=== PATIENT | male | born 1935 | race Caucasian/White ===

== ENCOUNTER 2019-01-24 08:41 | Inpatient (IN) | payer OTHER ==
[~2019-01-24] VITALS: Ht 175.3 cm; Wt 107.5 kg
[2019-01-24] MEDS ORDERED: DILTIAZEM 24HR120 MG (09:11)
[2019-01-24] MEDS ORDERED: XARELTO15 MG (09:11)
[2019-01-24] MEDS ORDERED: SINGULAIR 10MG10 MG (09:13)
[2019-01-24] MEDS ORDERED: LASIX20 MG (09:14)
[2019-01-24] MEDS ORDERED: ADVAIR HFA 230/12 GM (09:14)
[2019-01-24] MEDS ORDERED: RYTARY ER 36.21 EACH (09:15)
--- NOTE | 2019-01-24 09:45 | NUR ---
SE RECIBE PTE EN AMBULANCIA ACOMPANADO POR FAMILIAR POR DIFICULTAD RESPIRATORIA SUDOROSO CON WAGNER CATETER. EVALUADO POR EL SE ORIENTA PTE Y FAMILIAR SOBRE TRATAMIENTO MEDICO Y LA UNIDAD CONECTADO A MONITOR CARDIACO. SE LE EXTRAEN MUESTRAS DE JEANINE Y SE ENVIAN AL LABORATORIO. SE LE REALIZAN ABG Y TERAPIA RESPIRATORIA POR . SE LE OBSERVAN AMBAS EXTREMIDADES INFERIORES EDEMATOSAS. SE MANTIENE EN OBSERVACION.
--- NOTE | 2019-01-24 10:33 | NUR ---
POR ORDEN DEL SE LE BAJA EL RATE DE TRIDIL AT 3ML/HR. SE MANTIENE EN OBSERVACION.
--- NOTE | 2019-01-24 15:44 | NUR ---
SE RECIBE PACIENTE EN AREA DE CHEST PAIN BOBY # 18.SE OFRECE DORY PARA EVALUAR CONDICION.PACIENTE ALERTA,ACTIVO Y ORIENTADO,ACOMPANADO DE ESPOSA. CONECTADO A MONITOR CARDIACO CON SATUROMETRO Y CANULA NASAL A 3 LITROS.SE MIDEN Y DOCUMENTAN S/V.IVF'S PATENTES BAJANDO TRIDIL A 3MLS/HR A TRAVEZ DE VENA EN MANO IZQ.AREA SANIYA DE EDEMA Y/O ERITEMA.SILVIA ES EVALUADO POR DR TAVERA A LAS 3:30PM E INDICA SERA ADMITIDO.SE CONTINUA MONITOREANDO EN TURNO POR CAMBIOS SIGNIFICATIVOS.BARANDAS ELEVADAS POR KHANNA SEGURIDAD,NO REFIERE DUDAS AL MOMENTO.
[2019-01-30] MEDS ORDERED: AMIODARONE HCL200 MG PO (16:44)
[2019-01-30] MEDS ORDERED: TOPROL XL100 M1 PO (16:44)
[2019-01-30] MEDS ORDERED: SERTRALINE HCL50 MG PO (16:45)
[2019-01-30] MEDS ORDERED: LASIX20 MG PO (16:46)
[2019-02-01] MEDS ORDERED: SINEMET 25-1001 EACH PO (09:40)
[2019-02-01] MEDS ORDERED: FUROSEMIDE20 MG PO (09:40)
[2019-02-01] MEDS ORDERED: DILTIAZEM 24HR120 MG PO (09:40)
[2019-02-01] MEDS ORDERED: XARELTO15 MG PO (09:40)
[2019-02-01] MEDS ORDERED: ARICEPT10 MG PO (09:40)
[2019-02-01] MEDS ORDERED: XOPENEX HFA15 GM IH (09:47)
[2019-02-01] MEDS ORDERED: ADVAIR HFA 230/12 GM IH (10:04)
[2019-02-01] MEDS ORDERED: SINGULAIR 10MG10 MG PO (10:04)
== END 2019-02-01 13:12 | disposition home or self-care (01) | DRG 292 ==
LOC: ER 08:41 → ICU-2 16:07 → ICU 16:07 → MEDJ 01-29 18:38
PROVIDERS: ADMIT Internal Medicine
PROC: B246ZZZ Ultrasonography of Right and Left Heart (ICD-10-PCS; principal; 2019-01-24)
PROC: 3E0F7GC Introduction of Other Therapeutic Substance into Respiratory Tract, Via Natural or Artificial Opening (ICD-10-PCS; 2019-01-24)
PROC: 4A033R1 Measurement of Arterial Saturation, Peripheral, Percutaneous Approach (ICD-10-PCS; 2019-01-24)
PROC: 4A12X4Z Monitoring of Cardiac Electrical Activity, External Approach (ICD-10-PCS; 2019-01-30)
DX: I11.0 Hypertensive heart disease with heart failure (principal); J44.1 Chronic obstructive pulmonary disease with (acute) exacerbation; J45.41 Moderate persistent asthma with (acute) exacerbation; I50.23 Acute on chronic systolic (congestive) heart failure; I08.3 Combined rheumatic disorders of mitral, aortic and tricuspid valves; I48.0 Paroxysmal atrial fibrillation; Z79.01 Long term (current) use of anticoagulants